=== PATIENT | male | born 1995 | race Caucasian/White ===

== ENCOUNTER 2016-07-26 17:10 | Emergency (ER) | payer SELFPAY ==
[~2016-07-26] VITALS: Ht 177.8 cm; Wt 95.5 kg
[~2016-07-26 17:10] MED LIST: AMOXICILLIN 8751 TAB PO; DOXYCYCLINE 10100 MG PO; PHENERGAN 25 TA25 MG PO
[2016-07-26 17:15] VITALS: TEMP 98.1
[2016-07-26] MEDS ORDERED: BACTRIM DS 8001 TAB PO (18:11)
[2016-07-26] MEDS ORDERED: NORCO 325 MG-51 TAB PO (18:11)
[2016-07-26 18:26] VITALS: BP 151/84; PULSE 92
== END 2016-07-26 18:26 | disposition home or self-care (01) ==
LOC: COL.ER 17:10
DX: L02.01 Cutaneous abscess of face (principal); F17.210 Nicotine dependence, cigarettes, uncomplicated

== ENCOUNTER 2016-09-29 08:42 | Emergency (ER) | payer SELFPAY ==
[~2016-09-29] VITALS: Ht 172.7 cm; Wt 90.9 kg
[~2016-09-29 08:42] MED LIST changes: +BACTRIM DS 8001 TAB PO; +NORCO 325 MG-51 TAB PO
[2016-09-29 09:29] LABS: HEMOGLOBIN 16.8 g/dl (13.5-18.0); MEAN CELL VOLUME 84 fl (80.0-100.0); MEAN CORPUSCULAR HEMOGLOBIN 29 pg (27.0-31.0); MEAN CORPUSCULAR HGB CONC 34 g/dl (33.0-37.0); MEAN PLATELET VOLUME 10.2 fl (7.4-10.4); PLATELET COUNT 246 K/mm3 (130-400); RED BLOOD COUNT 5.81 M/mm3 (4.20-5.60); REDCELL DISTRIBUTION WIDTH-CV 13.5 % (11.5-14.5)
[2016-09-29 09:40] LABS: ADJUSTED CALCIUM 8.8 mg/dL (8.4-10.2); ALBUMIN 4.6 gm/dL (3.5-5.0); BILIRUBIN,TOTAL 0.8 mg/dL (0.0-1.0); CALCIUM 9.3 mg/dL (8.4-10.2); CREATININE, serum 1.02 mg/dL (0.66-1.25); POTASSIUM 3.4 mmol/L (3.4-5.0); TOTAL PROTEIN 8.3 gm/dL (6.4-8.2)
[2016-09-29 09:41] LABS: ADD PATHOLOGY DIFF REVIEW NO
[2016-09-29 09:44] LABS: BAND 2 % (0-10); EOSINOPHIL 3 % (0-4); NEUTROPHILS 78 % (42.0-75.2); TOTAL CELLS COUNTED 100
[2016-09-29 09:47] LABS: INFLUENZA B NEGATIVE
[2016-09-29 11:18] LABS: PH 5 (5-8); SQUAMOUS EPITHELIAL 0-2 /hpf; URINE APPEARANCE Hazy; URINE BACTERIA None Seen /hpf; URINE BILIRUBIN Negative (NEGATIVE); URINE BLOOD Negative (NEGATIVE); URINE COLOR Amber; URINE GLUCOSE Negative (NEGATIVE); URINE KETONE 1+ (NEGATIVE); URINE UROBILINOGEN Negative (NEGATIVE)
[2016-09-29] MEDS ORDERED: ZOFRAN 4MG T4 MG/TAB PO (11:52)
[2016-09-29 11:55] VITALS: BP 125/81; PULSE 81; TEMP 99.1
== END 2016-09-29 12:16 | disposition home or self-care (01) ==
LOC: COL.ER 08:42
PROVIDERS: Nurse Practitioner
DX: R11.10 Vomiting, unspecified (principal); J06.9 Acute upper respiratory infection, unspecified; F17.210 Nicotine dependence, cigarettes, uncomplicated
CPT/HCPCS: J1885; J2405; J7030

== ENCOUNTER 2016-12-13 19:37 | Emergency (ER) | payer SELFPAY ==
[~2016-12-13] VITALS: Ht 172.7 cm; Wt 90.9 kg
[~2016-12-13 19:37] MED LIST changes: +ZOFRAN 4MG T4 MG/TAB PO
[2016-12-13 19:41] VITALS: BP 145/73; TEMP 98.6
[2016-12-13 21:23] VITALS: PULSE 75
== END 2016-12-13 21:24 | disposition home or self-care (01) ==
LOC: COL.ER 19:37
DX: S70.02XA Contusion of left hip, initial encounter (principal); F17.210 Nicotine dependence, cigarettes, uncomplicated; V00.131A Fall from skateboard, initial encounter; Y93.39 Activity, other involving climbing, rappelling and jumping off; Y92.830 Public park as the place of occurrence of the external cause
CPT/HCPCS: J1885

== ENCOUNTER 2018-10-09 11:10 | Emergency (ER) | payer SELFPAY ==
[~2018-10-09] VITALS: Ht 172.7 cm; Wt 70.6 kg
[2018-10-09 11:26] VITALS: BP 120/82; TEMP 98.5
[2018-10-09] MEDS ORDERED: CEPHALEXIN500 M1 PO (12:07)
[2018-10-09] MEDS ORDERED: DOXYCYCLINE 10100 MG PO (12:07)
[2018-10-09] MEDS ORDERED: NORCO 325 MG-51 TAB PO (12:08)
[2018-10-09 12:26] VITALS: PULSE 92
== END 2018-10-09 12:28 | disposition home or self-care (01) ==
LOC: COL.ER 11:10
DX: L02.01 Cutaneous abscess of face (principal); F17.210 Nicotine dependence, cigarettes, uncomplicated; F12.90 Cannabis use, unspecified, uncomplicated; Z90.89 Acquired absence of other organs